=== PATIENT | male | born 1960 | race Caucasian/White ===

== ENCOUNTER 2019-11-15 07:22 | Inpatient (IN) | payer OTHER ==
[~2019-11-15] VITALS: Ht 177.8 cm; Wt 76.2 kg
[2019-11-15 07:53] LABS: BASO # 0.1 (0.0-0.2); BASO % 1.1 % (0.0-2.0); EOS # 0.1 (0.0-0.7); EOS % 1.8 % (0-4.0); HEMATOCRIT 49.9 % (42.0-52.0); HEMOGLOBIN 16.7 g/dl (13.5-18.0); LYMPH # 2.3 (1.2-3.4); LYMPH % 32.4 % (20.0-51.0); MEAN CELL VOLUME 93 fl (80.0-100.0); MEAN CORPUSCULAR HEMOGLOBIN 31 pg (27.0-31.0); MEAN CORPUSCULAR HGB CONC 34 g/dl (33.0-37.0); MEAN PLATELET VOLUME 10.7 fl (7.4-10.4); MONO # 0.5 (0.1-0.6); MONO % 7.6 % (1.7-9.3); PLATELET COUNT 239 K/mm3 (130-400); RED BLOOD COUNT 5.39 M/mm3 (4.20-5.60); REDCELL DISTRIBUTION WIDTH-CV 12.8 % (11.5-14.5)
[2019-11-15 08:03] LABS: ALANINE AMINOTRANSFERASE 23 U/L (4-49); ALBUMIN 4.2 gm/dL (3.5-5.0); ALKALINE PHOSPHATASE 92 U/L (50-136); ANION GAP 9 mmol/L (7-16); AST,SGOT 30 U/L (15-37); BILIRUBIN,TOTAL 0.8 mg/dL (0.0-1.0); BLOOD UREA NITROGEN 19 mg/dL (9-20); CARBON DIOXIDE 26 mmol/L (22-30); CHLORIDE 105 mmol/L (98-107); CREATININE, serum 0.89 (0.66-1.25); GLUCOSE 86 mg/dL (74-106); POTASSIUM 4.7 mmol/L (3.4-5.0); SODIUM 140 mmol/L (137-145); TOTAL PROTEIN 7.5 gm/dL (6.4-8.2)
[2019-11-15 08:19] LABS: TROPONIN-I < 0.012 ng/mL (0.000-0.035)
--- NOTE | 2019-11-15 13:23 | NUR ---
Patient has arrived to the floor. He is stable and now comfortable in the room. Denies pain or SOB at this time. IV site is CD&I, IVF infusing but to be D/C'd. is currently at the bed side. Patient has no other complaints at this time. Call light is in reach.
[2019-11-15 13:51] VITALS: BP 135/86; PULSE 69; TEMP 97.5
[2019-11-15 16:00] VITALS: BP 125/70; PULSE 59; TEMP 98.5
--- NOTE | 2019-11-15 18:11 | NUR ---
Patient has been stable since arriving. No complaints of pain or discomfort. Had one episode of SOB towards the end of the day but has since subsided. Patient denies other needs and understands his plan of care. Call light is in reach.
[2019-11-15 19:57] VITALS: BP 122/65; PULSE 62; TEMP 98
--- NOTE | 2019-11-15 21:17 | NUR ---
Pt assessment completed and documented. Pt resting in bed at this time. Pt alert and oriented x3. Denies pain. Pt states he is still having some intermittent shortness of breath with exertion. INT to right forearm patent and intact. Tele on. Pt denies any other needs at this time. Call light within reach.
[2019-11-16] VITALS (11 sets, daily range): BP systolic 97–150; BP diastolic 64–85; PULSE 63–103; TEMP 97.4–98.5
--- NOTE | 2019-11-16 05:28 | NUR ---
Pt currently ambulating in halls at this time. Pt states he has been awake all night. States that any time he closes his eyes he feels as if the shortness of breath comes back. No complaints of shortness of breath at this time with ambulation. INT to right forearm CDI. Telemetry on. No complaints of pain overnight. Denies any other needs at this time. Will continue to monitor.
--- NOTE | 2019-11-16 07:05 | NUR ---
Report given to RAINE Hyde
[2019-11-16 07:47] LABS: BASO # 0.1 (0.0-0.2); BASO % 1.2 % (0.0-2.0); EOS # 0.1 (0.0-0.7); EOS % 1.5 % (0-4.0); GRAN # 3.9 (1.4-6.5); GRAN % 56.8 % (42.2-75.2); HEMATOCRIT 48.2 % (42.0-52.0); HEMOGLOBIN 16.4 g/dl (13.5-18.0); LYMPH # 2.3 (1.2-3.4); LYMPH % 33.6 % (20.0-51.0); MEAN CELL VOLUME 92 fl (80.0-100.0); MEAN CORPUSCULAR HEMOGLOBIN 31 pg (27.0-31.0); MEAN CORPUSCULAR HGB CONC 34 g/dl (33.0-37.0); MEAN PLATELET VOLUME 11.1 fl (7.4-10.4); MONO # 0.5 (0.1-0.6); MONO % 6.8 % (1.7-9.3); PLATELET COUNT 270 K/mm3 (130-400); RED BLOOD COUNT 5.24 M/mm3 (4.20-5.60); REDCELL DISTRIBUTION WIDTH-CV 12.8 % (11.5-14.5)
[2019-11-16 07:51] LABS: CALCIUM 8.8 mg/dL (8.4-10.2); CREATININE, serum 0.79 (0.66-1.25); MAGNESIUM 2.1 mg/dL (1.6-2.3); POTASSIUM 4.4 mmol/L (3.4-5.0)
--- NOTE | 2019-11-16 11:56 | NUR ---
Assessment complete. Patient relaxing in bed at this time. States he feels fine just tired. States when he closes his eyes is when he feels like he cannot breathe. No other complaints. No pain or discomfort were reported. is currently at the bed side. NO other needs were expressed at this time. Call light is in reach.
--- NOTE | 2019-11-16 16:37 | NUR ---
NETTA met with the patient to discuss discharge plan. The patient lives in [place] with his , Agustina (ph#[phone]). He reports independence with ADLs and does not have any DME. The patient's primary care provider is Mar Marte APRN and he receives his medications at [facility] in [place]. He reports no difficulties obtaining his meds, so far. The patient does not have a DPOA-HC, but he was interested in obtaining a form for DPOA-HC. NETTA provided. The patient plans to return home with his upon discharge. No additional needs at this time.
--- NOTE | 2019-11-16 21:55 | NUR ---
Pt assessment completed and documented. Pt resting in bed at this time trying to sleep. Pt has been ambulating in the hallways independently without complaints of shortness of breath. Pt alert and oriented x4. Denies pain. INT to right forearm CDI. Telemetry on. Pt denies any other needs at this time. Call light within reach. Will continue to monitor
[2019-11-17 01:08] VITALS: BP 109/70; PULSE 66; TEMP 97.5
[2019-11-17 02:03] VITALS: BP 114/82; PULSE 83; TEMP 97.6
--- NOTE | 2019-11-17 05:06 | NUR ---
Pt has been awake for most of the night with complaints of being restless and short of breath when he closes his eyes. Scheduled HS melatonin and ativan given per orders in which pt states he was only able to get a couple hours of sleep before he woke up again and was restless and unable to lay down. One time dose of ativan given per orders earlier this morning with a sip of water. No further complaints. Call light within reach.
[2019-11-17 07:11] VITALS: BP 140/92; PULSE 60; TEMP 97.5
[2019-11-17 07:18] LABS: BASO # 0.1 (0.0-0.2); BASO % 1.1 % (0.0-2.0); EOS # 0.1 (0.0-0.7); EOS % 1.7 % (0-4.0); GRAN # 4.3 (1.4-6.5); GRAN % 57.1 % (42.2-75.2); LYMPH # 2.5 (1.2-3.4); LYMPH % 32.9 % (20.0-51.0); MEAN CELL VOLUME 92 fl (80.0-100.0); MEAN CORPUSCULAR HGB CONC 34 g/dl (33.0-37.0); MEAN PLATELET VOLUME 10.7 fl (7.4-10.4); MONO # 0.5 (0.1-0.6); MONO % 6.9 % (1.7-9.3); PLATELET COUNT 289 K/mm3 (130-400); RED BLOOD COUNT 5.91 M/mm3 (4.20-5.60); REDCELL DISTRIBUTION WIDTH-CV 12.8 % (11.5-14.5)
[2019-11-17 07:31] LABS: HEMATOCRIT 54.2 % (42.0-52.0); HEMOGLOBIN 18.6 g/dl (13.5-18.0); MEAN CORPUSCULAR HEMOGLOBIN 31 pg (27.0-31.0)
[2019-11-17 07:38] LABS: CALCIUM 8.9 mg/dL (8.4-10.2); CREATININE, serum 0.89 (0.66-1.25); MAGNESIUM 2.1 mg/dL (1.6-2.3); POTASSIUM 4.5 mmol/L (3.4-5.0)
--- NOTE | 2019-11-17 08:10 | NUR ---
Assessment completed, alert/oriented, denies pain or disocmfort, patient still in A.fib on tele / rrate 120, on day#3 of Sotalol and is scheduled for Cardioversion this morning, Qtc 474 on EKG, lungs CTA/ no resp. difficulty noted, other vital signs stable, morning meds given, he is NPO for CV and has signed consent, denies other needs at this time
--- NOTE | 2019-11-17 08:30 | NUR ---
Patient is going down for his Cardioversion at this time
--- NOTE | 2019-11-17 10:52 | NUR ---
First visit from the mushroom picker. No needs right now.
--- NOTE | 2019-11-17 11:00 | NUR ---
Patient arrived back to [facility] at this time, he is alert/oriented, vital signs stable, denies pain , present
[2019-11-17 11:15] VITALS: BP 119/91; PULSE 89
[2019-11-17 11:48] VITALS: BP 111/75; PULSE 90
[2019-11-17] MEDS ORDERED: ELIQUIS 5MG PO (12:25)
[2019-11-17] MEDS ORDERED: COREG 6.256.25 MG/TA PO (12:26)
[2019-11-17] MEDS ORDERED: ENTRESTO 24 MG1 EACH PO (12:26)
[2019-11-17] MEDS ORDERED: PACERONE400 MG PO (12:26)
[2019-11-17] MEDS ORDERED: LASIX 20MG TABL20 MG PO (12:27)
[2019-11-17 13:08] LABS: HEMATOCRIT 54.5 % (42.0-52.0); HEMOGLOBIN 18.4 g/dl (13.5-18.0)
--- NOTE | 2019-11-17 14:28 | NUR ---
Met with pt and his for CHF education. This is a new diagnosis for pt. Provided pt with CHF Binder and Heart Failure Zone sheet. Pt reports that the only real symptom he was having prior to admission was fatigue. He denies any concerns with his weight or swelling. We discussed following low sodium diet. Pt reports that he already follows a low-sodium diet. 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 Encouraged him to slowly work up back to his prior activity level. Discussed additional S&S of CHF and when to contact his provider. Discussed importance of compliance with new meds. Pt and his verbalized understanding and denied any questions or concerns. Pt was agreeable to be contacted after discharge. CM phone number provided for any questions or concerns.
--- NOTE | 2019-11-17 15:29 | NUR ---
The patient discharged home today, 11/16 with his . There are no needs.
--- NOTE | 2019-11-17 15:45 | NUR ---
Discharge orders discussed with the patient, instructed to follow up with PCP and Cardiogoly as isa, discussed all new medications and scripts sent to pharmacy for him, discussed cardiac rehab and we have sent a referral, IV and tele removed, he is leaving with his , he is ambulatory and I escorted him out the door
--- NOTE | 2019-11-18 15:12 | NUR ---
Attempted to call pt for CHF f/u call. No answer. Attempted to leave message however mailbox is full and not accepting any more messages.
== END 2019-11-17 15:48 | disposition home or self-care (01) | DRG 308 ==
LOC: COL.ER 07:22 → MEDICAL 09:35
PROVIDERS: Emergency Medicine; Physician Assistant; ADMIT Hospitalist
PROC: 5A2204Z Restoration of Cardiac Rhythm, Single (ICD-10-PCS; principal; 2019-11-15)
DX: I48.91 Unspecified atrial fibrillation (principal); I50.21 Acute systolic (congestive) heart failure; F41.9 Anxiety disorder, unspecified; F17.210 Nicotine dependence, cigarettes, uncomplicated; I42.9 Cardiomyopathy, unspecified; G47.00 Insomnia, unspecified; J44.9 Chronic obstructive pulmonary disease, unspecified
CPT/HCPCS: OP; 99222-AI; 99232-AI; 99239; A9500; J1650; J2704; J2785; J3475; J7030

== ENCOUNTER 2021-02-13 08:56 | Inpatient (IN) | payer OTHER ==
[~2021-02-13] VITALS: Ht 180.3 cm; Wt 73.4 kg
[2021-02-13] VITALS (7 sets, daily range): BP systolic 51–170; BP diastolic 63–111; PULSE 62–85; TEMP 97.9–98.6
[~2021-02-13 08:56] MED LIST: COREG 6.256.25 MG/TA PO; ELIQUIS 5MG PO; ENTRESTO 24 MG1 EACH PO; LASIX 20MG TABL20 MG PO; PACERONE400 MG PO
[2021-02-13 09:57] LABS: BASO # 0.1 K/mm3 (0.0-0.2); EOS # 0.1 K/mm3 (0.0-0.7); EOS % 2.1 % (0-4.0); GRAN # 3.8 K/mm3 (1.4-6.5); GRAN % 60.7 % (42.2-75.2); HEMATOCRIT 46.9 % (42.0-52.0); LYMPH # 1.8 K/mm3 (1.2-3.4); LYMPH % 28.1 % (20.0-51.0); MEAN CELL VOLUME 92 fl (80.0-100.0); MEAN CORPUSCULAR HEMOGLOBIN 31 pg (27.0-31.0); MEAN CORPUSCULAR HGB CONC 34 g/dl (33.0-37.0); MEAN PLATELET VOLUME 11.4 fl (7.4-10.4); MONO # 0.5 K/mm3 (0.1-0.6); MONO % 7.9 % (1.7-9.3); PLATELET COUNT 254 K/mm3 (130-400); RED BLOOD COUNT 5.11 M/mm3 (4.20-5.60); REDCELL DISTRIBUTION WIDTH-CV 12.9 % (11.5-14.5)
[2021-02-13 10:09] LABS: ALANINE AMINOTRANSFERASE 17 U/L (0-55); ALKALINE PHOSPHATASE 88 U/L (40-150); ANION GAP 11 mmol/L (7-16); AST,SGOT 18 U/L (5-34); BILIRUBIN,TOTAL 0.8 mg/dL (0.2-1.2); BLOOD UREA NITROGEN 17 mg/dL (8-26); CALCIUM 9.2 mg/dL (8.4-10.2); CARBON DIOXIDE 24 mmol/L (23-31); CHLORIDE 108 mmol/L (98-107); CREATININE, serum 0.94 mg/dL (0.72-1.25); GLUCOSE 67 mg/dL (70-99); SODIUM 143 mmol/L (136-145); TOTAL PROTEIN 7.2 gm/dL (6.2-8.1)
[2021-02-13 10:20] LABS: TROPONIN-I < 0.010 ng/mL (0.00-0.033)
--- NOTE | 2021-02-13 13:34 | NUR ---
MED RECONCILIATION COMPLETED. PT HAS NOT TAKEN ANY OF HER MEDICATIONS IN MONTHS. THE PATIENT DOES NOT WANT TO HAVE TO TAKE MEDICATIONS. THIS RN EDUCATED THE PATIENT ON WHY IT IS IMPORTANT FOR THIS PATIENT TO TAKE MEDICATIONS.
--- NOTE | 2021-02-13 21:00 | NUR ---
ASSESSMENT COMPLETE. PT COOPERATIVE WITH CARES. PT RESTING IN BED WATCHING TV. PT STATES HE HAS A HEADACHE, WHICH HE RATES AT AN 8. HOSPITALIST CALLED TO ADD PAIN MEDICATION TO PT'S eMAR. PT CONTINUES ON CARDIZEM DRIP PER ORDERS. VS HOURLY. PT DENIES PALPITATIONS, SOB OR DIZZINESS. PT STATES HE HAS NO OTHER NEEDS AT THIS TIME. CALL LIGHT WITHIN REACH.
[2021-02-14] VITALS (13 sets, daily range): BP systolic 127–155; BP diastolic 72–112; PULSE 60–91; TEMP 97.2–98
--- NOTE | 2021-02-14 06:30 | NUR ---
PT ASLEEP IN BED. PT SLEPT ALL NIGHT AFTER TYLENOL WAS GIVEN FOR HIS HEADACHE. PT DENIES PALPITATIONS, SOB OR DIZZINESS. PT STATES HE HAS NO OTHER NEEDS AT THE TIME, WHEN HE WAS STILL AWAKE. CALL LIGHT WITHIN REACH.
[2021-02-14 07:19] LABS: CALCIUM 8.8 mg/dL (8.4-10.2); CREATININE, serum 0.84 mg/dL (0.72-1.25); MAGNESIUM 1.8 mg/dL (1.6-2.6); POTASSIUM 4.2 mmol/L (3.5-4.5)
--- NOTE | 2021-02-14 07:35 | NUR ---
Pt. is supine on bed awake/alert/oriented. Pt. is on telemetry and heart sound are irregular. Pt. is on Cardizem drip to right forearm, site patent. Pt. remains on NPO status for VENU
--- NOTE | 2021-02-14 09:26 | NUR ---
NETTA met with the patient to discuss discharge plan. The patient lives in [place] with his , Agustina (ph#[phone]). He reports independence with ADLs and does not have any DME. The patient's primary care provider is EUGENIE Scott and he receives his medications from [facility] in . He reports no difficulties obtaining his meds. The patient does not have a DPOA-HC, but he was interested in obtaining a form. NETTA provided. The patient plans to return home with his upon discharge. No additional needs at this time. *Discharge plan: home with *
--- NOTE | 2021-02-14 10:17 | NUR ---
Initial visit; Patient thanked Corporate Wellness Coordinator for looking in on him and offering God's blessings. Patient had no further spiritual needs at this time.
--- NOTE | 2021-02-14 12:45 | NUR ---
HR IN THE 50'S NOTIFIED RAINE FOSTER WITH DR. GREENE. PT REMAINS ON A CARDIZEM GTT ON THE FLOOR. HOLDING AM COREG D/T HR, AND WILL AWAIT RESPONSE FROM DR. GREENE REGARDING CARDIZEM.
--- NOTE | 2021-02-14 14:43 | NUR ---
The patient's RN notified NETTA that the patient wanted to complete his DPOA-HC. NETTA met with the patient. The patient designated his and then his brother, Miguel Angel Crenshaw, as the alternate. NETTA and RAINE Wagner, witnessed the patient's signature. NETTA provided the patient with the original and some copies. NETTA placed a copy in the patient's chart.
--- NOTE | 2021-02-14 22:30 | NUR ---
ASSESSMENT COMPLETE. PT COOPERATIVE WITH CARES. PT RESTING IN BED WATCHING TV. PT DENIES PAIN, PALPITATIONS, SOB OR DIZZINESS. PT TAKEN OFF TELE TO SHOWER AND PUT BACK ON. PT STATES HE HAS NO OTHER NEEDS AT THIS TIME. CALL LIGHT WITHIN REACH.
[2021-02-15 00:03] VITALS: BP 153/92; PULSE 62; TEMP 97.6
[2021-02-15 04:07] VITALS: BP 138/95; PULSE 62; TEMP 97.7
--- NOTE | 2021-02-15 06:24 | NUR ---
PT ASLEEP IN BED. PT NPO AFTER MIDNIGHT. PT HAD AN OTHERWISE UNEVENTFUL NIGHT. CALL LIGHT WITHIN REACH.
[2021-02-15 07:02] LABS: BASO # 0.1 K/mm3 (0.0-0.2); BASO % 1.1 % (0.0-2.0); EOS # 0.2 K/mm3 (0.0-0.7); EOS % 2.4 % (0-4.0); GRAN # 4.7 K/mm3 (1.4-6.5); GRAN % 57.1 % (42.2-75.2); HEMOGLOBIN 17.5 g/dl (13.5-18.0); LYMPH # 2.6 K/mm3 (1.2-3.4); LYMPH % 31.4 % (20.0-51.0); MEAN CELL VOLUME 95 fl (80.0-100.0); MEAN CORPUSCULAR HEMOGLOBIN 31 pg (27.0-31.0); MEAN CORPUSCULAR HGB CONC 33 g/dl (33.0-37.0); MEAN PLATELET VOLUME 10.9 fl (7.4-10.4); MONO # 0.7 K/mm3 (0.1-0.6); MONO % 7.8 % (1.7-9.3); PLATELET COUNT 257 K/mm3 (130-400); RED BLOOD COUNT 5.57 M/mm3 (4.20-5.60); REDCELL DISTRIBUTION WIDTH-CV 12.5 % (11.5-14.5)
[2021-02-15 07:08] LABS: HEMATOCRIT 52.8 % (42.0-52.0)
[2021-02-15 07:18] LABS: CALCIUM 9.7 mg/dL (8.4-10.2); CREATININE, serum 0.91 mg/dL (0.72-1.25); POTASSIUM 4.2 mmol/L (3.5-4.5)
[2021-02-15 08:00] VITALS: BP 124/70; PULSE 77; TEMP 97.9
--- NOTE | 2021-02-15 08:43 | NUR ---
Assessment completed, alert/oriented, vital signs stable, denies any pain or discomfort, denies any palpiations or racing heart feeling, denies feeling SOA or dizzy/lightheaded, heart RRR/ SR on tele s/p cardioversion yesterday, lungs CTA/no reps.difficulty, plans for Loop recorder placement today by , patient has ordered breakfast, morning meds given, denies other needs at this time
[2021-02-15] MEDS ORDERED: CEPHALEXIN500 M1 PO (11:18)
[2021-02-15] MEDS ORDERED: LASIX 20MG TABL20 MG PO (11:20)
[2021-02-15] MEDS ORDERED: PACERONE400 MG PO (11:20)
--- NOTE | 2021-02-15 12:30 | NUR ---
Discharge instructions reviewed with the patient and his , instruccted to follow up with Cardiology and PCP as we have scheduled for him, instructed on loop rec. incision site cares and restrictions, instructed to take meds as prescribed, scripts sent to pharmacy for him, IV and tele removed, he is ambulatory and leaving with his , I escorted them out the door
== END 2021-02-15 12:32 | disposition home or self-care (01) | DRG 261 ==
LOC: COL.ER 08:56 → MEDICAL 11:06
PROVIDERS: Personal Emergency Response Attendant; Physician Assistant; ADMIT Internal Medicine
PROC: 5A2204Z Restoration of Cardiac Rhythm, Single (ICD-10-PCS; 2021-02-14)
PROC: 0JH632Z Insertion of Monitoring Device into Chest Subcutaneous Tissue and Fascia, Percutaneous Approach (ICD-10-PCS; principal; 2021-02-15)
DX: I48.91 Unspecified atrial fibrillation (principal); I50.20 Unspecified systolic (congestive) heart failure; F41.9 Anxiety disorder, unspecified; I42.8 Other cardiomyopathies; F17.210 Nicotine dependence, cigarettes, uncomplicated; E16.2 Hypoglycemia, unspecified; Z91.14 Patient's other noncompliance with medication regimen
CPT/HCPCS: 99222-AI; 99232-AI; 99239; C1764; J0282; J1650; J2704; J7050